=== PATIENT | female | born 1945 ===

== ENCOUNTER 2020-02-11 11:20 | Outpatient (REF) | payer MEDICARE, SELFPAY ==
[2020-02-11 21:10] LABS: Abs Immature Grans 0.06 10^3/uL (0.0-0.06); Absolute Basophil Count 0.04 10^3/uL (0.0-0.2); Absolute Lymphocyte Count 0.74 10^3/uL (1.2-3.4); Absolute Monocyte Count 0.58 10^3/uL (0.1-0.8); Basophils % 0.3; Eosinophils % 0.6; HCT 48.7 % (36.0-46.0); HGB 15.7 g/dL (11.2-15.7); Immature Grans % 0.5; Lymphocytes % 5.9; MCH 31.9 pg (27.0-33.0); MCHC 32.2 % (32.0-36.0); MPV 11.4 fL (8.0-11.0); Monocytes % 4.6; Neutrophils % 88.1; Nucleated RBC 0 %; Platelet Count 305 10^3/uL (130-400); RBC 4.92 10^6/uL (3.93-5.22); RDW 13.2 % (11.7-14.6); RDW-SD 48.7 fL
[2020-02-11 21:13] LABS: Absolute Eosinophil Count 0.08 10^3/uL (0.0-0.7)
[2020-02-11 21:54] LABS: ALT 21 U/L (14-59); AST 22 U/L (15-37); Albumin 3.6 g/dL (3.4-5.0); Alkaline Phosphatase 88 U/L (46-116); Anion Gap 5.8 mmol/L (3-11); BUN 20 mg/dL (7-18); Bilirubin, Total 0.7 mg/dL (0.2-1.0); CO2 32.2 mmol/L (21.0-32.0); CREATININE 0.84 mg/dL (0.55-1.02); Calcium 9.7 mg/dL (8.5-10.1); Chloride 103 mmol/L (98-107); Glucose 116 mg/dL (74-106); NT-proBNP 655 pg/mL (<300); Potassium 4.3 mmol/L (3.5-5.1); Sodium 141 mmol/L (136-145); TSH 1.69 uIU/mL (0.36-3.74); Total Protein 7.1 g/dL (6.4-8.2)
== END 2020-02-11 11:40 ==
LOC: NCHCN 11:20
PROVIDERS: PCP Registered Nurse; Visit Provider Registered Nurse
DX: R01.1 Cardiac murmur, unspecified (principal); E78.5 Hyperlipidemia, unspecified; I10 Essential (primary) hypertension; J84.89 Other specified interstitial pulmonary diseases
CPT/HCPCS: 80053; 83880; 84443; 85025